=== PATIENT | male | born 1990 | race Caucasian/White ===

== ENCOUNTER 2023-03-10 10:47 | Outpatient (AMB) | payer OTHER, SELFPAY ==
--- NOTE | 2023-03-10 11:25 | A.OFFVIS_ITS ---
Intake Intake Visit Reasons: Hematuria (2nd opinion) Intake Note: New Patient presents for initial visit for hematuria Urology Medications: none Blood Thinner: none [employer] Services Professional Required: No Accompanied by: Self / Same As Patient Allergies amoxicillin Allergy (Verified 03/10/23 12:59) Rash erythromycin base [From Erythrocin] Allergy (Verified 03/10/23 12:59) Rash Medication List - Last Reconciled 03/10/23 by CHARLES BenoitP- albuterol sulfate 90 mcg/actuation 2 puffs inhalation Q6H PRN fluoxetine 10 mg PO DAILY lorazepam 0.5 mg PO DAILY HPI HPI Comments History of Present Illness Details Yusuf is a very pleasant 32-year-old male patient of Dr. Leon. He presents to the office today as a new patient for hematospermia. In discussion with the patient today he reports noting hematospermia for quite some time now. He reports having had previous urology workup with [facility] and undergoing blood work, urinalysis, cytology, imaging, and in office cystoscopy and noting no abnormalities. He reports being told workup was essentially negative and benign. He presents to the office today for a 2nd opinion. Discussed at length potential causes for hematospermia patient is experiencing. When asked he does report it to be self-limiting. He reports last episode of noted hematospermia was over 6 months ago. He reports noting perineal pain with episodes of hematospermia. Discussed further workup with transrectal ultrasound verses MRI of the pelvis to further assess seminal vesicles. He otherwise denies any bothersome urinary issues. He denies urinary urgency, urinary frequency, incontinence, nocturia, hematuria, dysuria, foul smelling urine, changes to urinary stream, flank pain, fever, and or chills. In office urinalysis results reviewed with the patient today. He is happy with his current voiding parameters. He otherwise offers no other issues or concerns at this time. Review of Systems Const All systems reviewed & are unremarkable except as noted in HPI and below Physical Exam Const General: cooperative, healthy appearing, comfortable, no acute distress, well developed, alert and awake Orientation/consciousness: patient oriented x3 Limitations: no limitations HEENT Head: Yes normal to inspection, Yes normocephalic and Yes atraumatic Ears: hearing grossly normal bilaterally Eyes General: appearance normal, both eyes and all related structures Neck Neck: Yes normal visual inspection and Yes trachea midline Chest Chest palpation & inspection: normal inspection of the chest Resp Effort & Inspection: normal respiratory effort and able to speak in complete sentences Cardio Rate: regular rate GI Inspection: Yes normal to inspection General: Yes no CVA tenderness Back/Spine/Pelvis Back: no CVA tenderness Skin General skin exam: no rashes or lesions noted Neuro General: patient oriented x3 Extrem General: Yes normal to inspection Psych Appearance: grossly normal and well kempt Mental Status: mental status grossly normal Speech and movement: Normal speech and movement present and Clear speech present Affect: normal affect Attitude: cooperative Thought process: Normal thought process present Thought content: Normal thought content present Insight: Good insight present (Psych) Judgement: Good judgement present (Psych) Results AMB Urinalysis, Automated UA Leukoctes 0 Romelia/uL Last Edit by [employer] on 03/10/23 11:45 UA Nitrite Negative Last Edit by [employer] on 03/10/23 11:45 UA Urobilinogen 0.2 mg/dL Last Edit by [employer] on 03/10/23 11:45 UA Protein 0 mg/dL Last Edit by [employer] on 03/10/23 11:45 UA pH 6.5 Last Edit by [employer] on 03/10/23 11:45 UA Blood 0 Kahlil/uL Last Edit by [employer] on 03/10/23 11:45 UA Specific Appling 1.020 Last Edit by [employer] on 03/10/23 11:45 UA Ketone Negative Last Edit by [employer] on 03/10/23 11:45 UA Bilirubin 0 mg/dL Last Edit by [employer] on 03/10/23 11:45 UA Glucose 0 mg/dL Last Edit by [employer] on 03/10/23 11:45 Results Reviewed Results Reviewed: Laboratory Last Values Urine pH (Auto) 6.5 03/10/23 11:35 Specific Appling (Auto) 1.020 03/10/23 11:35 Urine Protein (Auto) 0 mg/dL 03/10/23 11:35 Glucose (UA)(Auto) 0 mg/dL 03/10/23 11:35 Urine Ketones (Auto) Negative 03/10/23 11:35 Urine Blood (Auto) 0 Kahlil/uL 03/10/23 11:35 Urine Nitrite (Auto) Negative 03/10/23 11:35 Urine Bilirubin (Auto) 0 mg/dL 03/10/23 11:35 Urine Urobilinogen (Auto) 0.2 mg/dL 03/10/23 11:35 Leukocyte Esterase (Auto) 0 Romelia/uL 03/10/23 11:35 Assessment & Plan Assessment & Plan (1) Hematospermia: Code(s): R36.1 - Hematospermia Plan In office urinalysis results reviewed with the patient today; as noted above. Discussed at length potential causes for hematospermia patient is experiencing. Discussed further workup with transrectal ultrasound verses MRI of the pelvis; however patient declines at this time Reassurance provided Discussed, educated, and stressed the importance of drinking plenty of water daily. Follow-up in 1 year; or sooner with any issues, concerns, and or questions. Orders: Orders AMB Urinalysis Automated Today Z13.9 - Encounter for screening, unspecified Patient Instructions: The patient had an opportunity to ask questions regarding the treatment plan. All questions were answered. Physical exam, labs, and imaging were discussed and reviewed in detail. As well as risks, benefits, and discussion of treatment choices. No major barriers to understanding were identified. The patient expressed understanding and agreement with the above treatment plan. The patient was made aware they should contact our office by phone for worsening of their current condition, the appearance of new symptoms, or with any questions or concerns. Compliance is encouraged with any medications and follow up testing that is ordered. It is a privilege to be allowed the opportunity to participate in? your urological care.? Again, if you have any questions or concerns If you have any questions or concerns please do not hesitate to contact me. The office is [phone]. This note is constructed using voice recognition software. While every effort has been made to ensure accuracy dust box worker errors may have been included. Yours sincerely, GUY Benoit Coding Level of Care Code New Pt Level 3 (09153) Diagnoses Hematospermia R36.1
== END 2023-03-10 12:26 | disposition home or self-care (01) ==
PROVIDERS: PCP Physician Assistant; Visit Provider Nurse Practitioner Family
DX: Z13.9 Encounter for screening, unspecified (principal); R36.1 Hematospermia
CPT/HCPCS: 99203

== ENCOUNTER → 2023-03-10 10:47 | Outpatient (BNVA) | payer OTHER, SELFPAY | PROVIDERS: PCP Physician Assistant; Visit Provider Nurse Practitioner Family | DX: R36.1 Hematospermia (principal) | CPT/HCPCS: 81003; 99202 ==